=== PATIENT | female | born 1945 | race Hispanic/Latino ===

== ENCOUNTER 2017-04-30 09:25 | Emergency (ER) | payer OTHER ==
[~2017-04-30] VITALS: Ht 149.9 cm; Wt 68.0 kg
[~2017-04-30 09:25] MED LIST: ALENDRONATE SOD70 MG PO; BENTYL10 MG PO; CALCIUM 600 +1 EAC2 PO; COLACE100 MG PO; CYCLOBENZAPRINE10 MG PO; LEVAQUIN500 MG PO; MELOXICAM7.5 MG PO; MILK OF MA400 MG/5 M PO; OMEPRAZOLE20 MG PO; SENOKOT8.6 MG PO; TYLENOL WITH C1 EACH PO; ZOFRAN ODT4 MG SL
[2017-04-30] MEDS ORDERED: ALBUTEROL SULF 0.083% NEB SOLN 3 ML NEB NEB STA (10:40)
[2017-04-30] MEDS ORDERED: IPRATROPIUM BROMIDE 0.02% 2.5 ML NEB NEB STA (10:40)
[2017-04-30] MEDS ORDERED: ACETAMINOPHEN/CODEINE ELIX 120-12 MG/5 ML UDC PO ONE (10:45)
[2017-04-30] MEDS ORDERED: DEXAMETHASONE 10MG/ML PF INJ INJ ONE (10:45)
--- NOTE | 2017-04-30 11:25 | Diagnostic Imaging Report ---
PROCEDURE: Frontal and lateral views of the chest. COMPARISON: 02/27/15 INDICATIONS: COUGH FINDINGS: Lines/tubes: None. Lungs: The lungs are well inflated. Small area of right mid lung opacification. Pleura: There is no pleural effusion or pneumothorax. Heart and mediastinum: The heart and the mediastinum are normal. Bones: No acute bony abnormality. IMPRESSION: Small area of right mid lung opacification, may represent scarring, nodule, or developing pneumonia. Attention on follow up. Dictated by: Aurelio Ludwig M.D. on 04/30/2017 at 11:33 Electronically approved by: Aurelio Ludwig M.D. on 04/30/2017 at 11:33
[2017-04-30] MEDS ORDERED: CEFTRIAXONE SOD 1 GM VIAL IM ONE (11:30)
[2017-04-30] MEDS ORDERED: LIDOCAINE HCL 1% 2 ML AMP ONE (11:40)
== END 2017-04-30 12:34 | disposition home or self-care (01) ==
LOC: ER 09:25
DX: R05 Cough (principal); J20.9 Acute bronchitis, unspecified
CPT/HCPCS: 71020; 87400; 99283; J0696; J2001

== ENCOUNTER → 2017-10-04 | Day surgery (SDC) | payer OTHER ==
[2017-10-01 15:58] LABS: BASOPHILS % 0.2 % (0.0-1.0); EOSINOPHILS # (AUTO) 0.2 (0.0-0.4); EOSINOPHILS % 2.2 % (0.0-6.0); HEMATOCRIT 36.7 % (34.2-44.1); HEMOGLOBIN 12.5 g/dL (12.0-16.0); LYMPHOCYTES # (AUTO) 2.4 (1.0-3.2); MEAN CORPUSCULAR HEMOGLOBIN 30.4 pg (28-32); MEAN CORPUSCULAR HGB CONC 34.1 g/dL (31-35); MEAN CORPUSCULAR VOLUME 89.3 fL (81-99); MONOCYTES # (AUTO) 0.8 (0.2-0.8); MONOCYTES % 7.4 % (4.4-11.3); NEUTROPHILS # (AUTO) 6.9 (2.1-6.9); NEUTROPHILS % 66.8 % (38.7-80.0); PLATELET COUNT 210 x10e3/uL (140-360); RED BLOOD COUNT 4.11 x10e6/uL (3.6-5.1); RED CELL DISTRIBUTION WIDTH 12.8 % (11.7-14.4)
[2017-10-01 16:17] LABS: BLOOD UREA NITROGEN 13 mg/dL (7-26); CARBON DIOXIDE 26 mmol/L (22-29); CHLORIDE 103 mmol/L (98-107); CREATININE, SERUM 0.75 mg/dL (0.57-1.11); SODIUM 138 mmol/L (136-145)
[2017-10-01 16:18] LABS: BUN/CREATININE RATIO 17 (6-25); CALCIUM 9.6 mg/dL (8.4-10.2); EST GLOMERULAR FILTRATION RATE > 60 ML/MIN (60-); GLUCOSE 97 mg/dL (74-118)
--- NOTE | 2017-10-01 17:01 | Diagnostic Imaging Report ---
PROCEDURE: Frontal and lateral views of the chest. COMPARISON: Chest x-ray 04/30/2017 INDICATIONS: PREOP CXR. left hallux valgus FINDINGS: Lines/tubes: None. Lungs: The lungs are well inflated and clear. There is no evidence of pneumonia or pulmonary edema. Pleura: There is no pleural effusion or pneumothorax. Heart and mediastinum: The heart and the mediastinum are normal. Bones: No acute bony abnormality. IMPRESSION: No acute cardiopulmonary disease. Resolved previous right midlung pneumonia. Dictated by: Prateek Peterson M.D. on 10/01/2017 at 17:04 Electronically approved by: Prateek Peterson M.D. on 10/01/2017 at 17:04
[~2017-10-04] MED LIST changes: +ACETAMINOPHEN 1000 MG/100 ML IV ONE; +BETAMETHASONE DISODIUM PHOS 6 MG/ML VIAL ONE; +BUPIVACAINE HCL 0.5% INJ 30 ML VIAL INJ ONE; +CLINDAMYCIN PHOS 900MG/ D5W 50 50 ML IV ONE; +DEXAMETHASONE SOD PHOS INJ 4 MG/ML VIAL ONE; +FENTANYL CITRATE/PF 100MCG/2 ML INJ ONE; +KETOROLAC TROMETHAMINE 30 MG/ML VIAL ONE; +MUPIROCIN 2% OINT 22 GM TUBE ONE; +ONDANSETRON HCL INJ 2 MG/ML VIAL ONE; +PROPOFOL IV EMULSION 10 MG/ML 20 ML VIAL ONE; +SEVOFLURANE INHAL SOLN 250 ML PEN BTL ONE
--- NOTE | 2017-10-04 09:31 | Diagnostic Imaging Report ---
PROCEDURE:FOOT LEFT AP \T\ LAT TECHNIQUE:AP and lateral portable views left foot INDICATION:Postoperative evaluation COMPARISON:None. FINDINGS: See conclusions. CONCLUSION: 1. Expected regional sequela of bunionectomy and second through fourth hammertoe correction. 2. Anatomic alignment without acute abnormality. Dictated by: Adi Goode M.D. on 10/04/2017 at 9:34 Electronically approved by: Adi Goode M.D. on 10/04/2017 at 9:34
--- NOTE | 2017-10-04 09:59 | Operative Report ---
DATE OF PROCEDURE: October 04, 2017 PREOPERATIVE DIAGNOSES 1. Painful hallux valgus deformity, left foot. 2. Painful contracted hammertoe, digit 2nd, left foot. 3. Painful contracted hammertoe, digit 3rd, left foot. 4. Painful contracted hammertoe, digit 4th, left foot. 5. Painful contracted hammertoe, digit 5th, left foot. POSTOPERATIVE DIAGNOSES 1. Painful hallux valgus deformity, left foot. 2. Painful contracted hammertoe, digit 2nd, left foot. 3. Painful contracted hammertoe, digit 3rd, left foot. 4. Painful contracted hammertoe, digit 4th, left foot. 5. Painful contracted hammertoe, digit 5th, left foot. OPERATIVE PROCEDURES 1. Kailash bunionectomy with screw fixation, left foot. 2. Arthroplasty, 2nd, with K-wire fixation 2nd through 4th digits, left foot. 3. Arthroplasty, 3rd, with K-wire fixation 2nd through 4th digits, left foot. 4. Arthroplasty, 4th, with K-wire fixation 2nd through 4th digits, left foot. 5. Arthroplasty, 5th, with K-wire fixation 2nd through 4th digits, left foot. 6. Intraoperative use of fluoroscopy. 7. Trigger point shot of cortisone. 8. Application of posterior splint. ANESTHESIA: General. HEMOSTASIS: Pneumatic thigh tourniquet at 350 mmHg. PROCEDURE IN DETAIL: Patient was taken into the operating room and placed on the operating room table in the supine position. Following induction of general anesthesia by the anesthesiologist, Webril wraps were placed on the patient's left thigh followed by application of left thigh tourniquet. The left lower extremity was then prepped and draped in the usual aseptic manner. The following procedure was then performed: Procedure #1: Kailash bunionectomy with screw fixation, left foot. Attention was directed to the dorsomedial aspect of the 1st MPJ where a 6 cm linear incision was performed. The incision was deepened via sharp and blunt dissection being careful to retract vital structures and ligate superficial vessels as necessary. Once the level of the capsule was reached, a longitudinal capsulotomy was then performed exposing the dorsomedial exostosis of the 1st metatarsal head. Via the use of an oscillating saw, a dorsomedial exostosis was excised from the operation site in toto. A V-osteotomy was then performed from medial to lateral. Capital fragment was then transitioned laterally. Upon adequate surgical and anatomical reduction utilizing proper AO technique, a 2 x 14 mm cortical screw was then used to achieve stability at the osteotomy site in conjunction with a buried 0.045 K-wire. All redundant bone medially was then excised utilizing an oscillating saw and rotating bur. PROCEDURES 2-5: Arthroplasty, 2nd through 5th with K-wire fixation, 2nd through 4th. Attention was then directed to the dorsal aspect of the above-mentioned toes where a 3 cm linear incision was performed. The incision was deepened down to the joint capsule. Transverse capsulotomy was then performed exposing the head of the proximal phalanxes. Via the use of an oscillating saw, the head of the proximal phalanxes were excised from the operation site in toto. All rough and bony edges were rasped smooth. The 2nd through 4th toes were still noted to be contracted, so a 0.045 K-wire was introduced up the metatarsophalangeal joint to achieve proper anatomic reduction. PROCEDURE #6: Intraoperative use of fluoroscopy was then used to make sure proper alignment and fixation was achieved. Closure was then obtained utilizing 3-0 Vicryl, 4-0 Vicryl and 4-0 nylon for capsule, subcutaneous tissue and skin respectively after properly and copiously flushing the area with saline. PROCEDURE #7: Trigger point shot of cortisone was then given to the 1st and 4th interspace of the left foot. Then approximately 18-20 mL of 0.5% plain Marcaine were then used to achieve local anesthesia above the surgical area. Sterile dressing was applied. Upon release of the thigh tourniquet, blood hyperemia was noted immediate to all digits of the patient's left foot. PROCEDURE #8: Application of posterior splint. A properly placed posterior splint was then applied keeping the foot at 90 degrees with respect to the leg to try to prevent any type of postop complications. Patient was then transferred from the OR to the recovery room with vital signs stable and neurovascular status intact. No intraoperative complications were encountered. Blood loss from the surgery was minimal. Patient is to remain nonweightbearing with crutches. Keep her foot elevated, and is to apply an ice pack to the ankle joint area. Job#: [id number] ID
== END | disposition home or self-care (01) ==
LOC: OR 05:42
PROVIDERS: ATTEND Podiatrist Foot Surgery
DX: M20.12 Hallux valgus (acquired), left foot (principal); M20.42 Other hammer toe(s) (acquired), left foot; Z88.0 Allergy status to penicillin; K21.9 Gastro-esophageal reflux disease without esophagitis
CPT/HCPCS: 36415; 71046; 80048; 85025; 93005; J0720; J1100; J1885; J2405

== ENCOUNTER → 2018-03-13 | Outpatient (CLI) | payer OTHER ==
[~2018-03-13] MED LIST changes: -ACETAMINOPHEN 1000 MG/100 ML IV ONE; -BETAMETHASONE DISODIUM PHOS 6 MG/ML VIAL ONE; -BUPIVACAINE HCL 0.5% INJ 30 ML VIAL INJ ONE; -CLINDAMYCIN PHOS 900MG/ D5W 50 50 ML IV ONE; -DEXAMETHASONE SOD PHOS INJ 4 MG/ML VIAL ONE; -FENTANYL CITRATE/PF 100MCG/2 ML INJ ONE; -KETOROLAC TROMETHAMINE 30 MG/ML VIAL ONE; -MUPIROCIN 2% OINT 22 GM TUBE ONE; -ONDANSETRON HCL INJ 2 MG/ML VIAL ONE; -PROPOFOL IV EMULSION 10 MG/ML 20 ML VIAL ONE; +REGADENOSON 0.4 MG/5 ML SYR IV ONE; -SEVOFLURANE INHAL SOLN 250 ML PEN BTL ONE
--- NOTE | 2018-03-13 12:34 | Cardiology Report ---
DATE OF STUDY: March 13, 2018 LEXISCAN STRESS TEST INDICATIONS: Chest pain. DESCRIPTION OF PROCEDURE: After informed consent, the patient was brought to the stress lab. She was given 11 mCi of technetium 99 Myoview, and myocardial perfusion SPECT images were obtained in horizontal long and short axis and vertical long axis views. Subsequently the patient was given 0.4 mg Lexiscan over 10 seconds. The patient was given 33 mCi of technetium 99 Myoview, and myocardial perfusion SPECT images were obtained in horizontal long axis and short axis and vertical long axis. Gated images were also obtained. Patient tolerated the procedure without any complications. REPORT: Baseline EKG shows sinus rhythm at 66 beats per minute. Normal axis, normal intervals. No acute ST-T changes. PARAMETERS 1. Resting heart rate is 67 beats per minute. 2. Maximum heart rate is 88 beats per minute. 3. Resting blood pressure 136/64 mmHg. 4. Maximum blood pressure is 136/64 mmHg. REASON FOR TERMINATION: Endpoint attained. INTERPRETATION 1. Negative for chest pain. 2. Negative for arrhythmias. 3. Blood pressure response consistent with Lexiscan. 4. No significant ST-T changes seen during Lexiscan infusion compared to baseline. 5. Analysis of SPECT images reveals uniform radioisotope uptake in all segments of the myocardium without any significant perfusion defects. CONCLUSIONS 1. No evidence of significant ischemia or infarction on this study. 2. No wall motion abnormalities. 3. Overall ejection fraction is 86%. Job#: [id number]
== END ==
LOC: NM 07:19
DX: R07.2 Precordial pain (principal)
CPT/HCPCS: 78452; 93017; A9502; J2785

== ENCOUNTER 2018-06-06 03:34 | Emergency (ER) | payer MEDICARE ==
[~2018-06-06] VITALS: Ht 149.9 cm; Wt 68.0 kg
[~2018-06-06 03:34] MED LIST changes: -REGADENOSON 0.4 MG/5 ML SYR IV ONE
--- OUTSIDE RECORDS SUMMARY | 2018-06-06 03:38 | XMS REPORT ---
Author Author [facility] Address Unknown Phone Unavailable Care Team Providers Care Manager Rfid Name Role Phone KYE SALEH Unavailable Unavailable ANGELO MALDONADO Unavailable Unavailable Alfredito LOPEZ Unavailable Unavailable PASQUALE MERCER Unavailable Unavailable Problems This patient has no known problems. Allergies, Adverse Reactions, Alerts This patient has no known allergies or adverse reactions. Medications This patient has no known medications. Results Test Description Test Time Test Comments Text Results Atomic Results Result Comments Stress Test - Treadmill ONLY 2018-03-13 12:07:00 [place] [address] Patient Name : RICHIE GUZMÁN MR #: [id number] : 1945 Age/Sex: 72/F Adm Physician : KYE SALEH MD Admit Date : Location : IN Room/Bed : REPORT: Cardiology Report DATE OF STUDY: March 13, 2018 LEXISCAN STRESS TEST INDICATIONS: Chest pain. DESCRIPTION OF PROCEDURE: After informed consent, the patient was brought to the stress lab. She was given 11 mCi of technetium 99 Myoview, and myocardial perfusion SPECT images were obtained in horizontal long and short axis and vertical long axis views. Subsequently the patient was given 0.4 mg Lexiscan over 10 seconds. The patient was given 33 mCi of technetium 99 Myoview, and myocardial perfusion SPECT images were obtained in horizontal long axis and short axis and vertical long axis. Gated images were also obtained. Patient tolerated the procedure without any complications. REPORT: Baseline EKG shows sinus rhythm at 66 beats per minute. Normal axis, normal intervals. No acute ST-T changes. PARAMETERS 1. Resting heart rate is 67 beats per minute. 2. Maximum heart rate is 88 beats per minute. 3. Resting blood pressure 136/64 mmHg. 4. Maximum blood pressure is 136/64 mmHg. REASON FOR TERMINATION: Endpoint attained. INTERPRETATION 1. Negative for chest pain. 2. Negative for arrhythmias. 3. Blood pressure response consistent with Lexiscan. 4. No significant ST-T changes seen during Lexiscan infusion compared to baseline. 5. Analysis of SPECT images reveals uniform radioisotope uptake in all segments of the myocardium without any significant perfusion defects. CONCLUSIONS 1. No evidence of significant ischemia or infarction on this study. 2. No wall motion abnormalities. 3. Overall ejection fraction is 86%. Job#: [id number] Signature Date Dictated By: KYE SALEH MD Transcribed By: PINO on 03/13/18 <Electronically signed by KYE SALEH MD><<Signature on File>>03/18/18 1315 COPY TO: FOOT LEFT AP LAT 2017-10-04 09:34:00 [place] [address] Patient Name: RICHIE GUZMÁN MR #: [id number] : 1945 Age/Sex: 72/F Req #: [id number] Adm Physician: Ordered by: ANGELO MALDONADO DPM Report #: [id number] Location: OR Room/Bed: Procedure: [id number] DX/FOOT LEFT AP LAT Exam Date: 10/04/17 Exam Time: 0900 REPORT STATUS: Signed PROCEDURE: FOOT LEFT AP T LAT TECHNIQUE: AP and lateral portable views left foot INDICATION: Postoperative evaluation COMPARISON: None. FINDINGS: See conclusions. CONCLUSION: 1. Expected regional sequela of bunionectomy and second through fourth hammertoe correction. 2. Anatomic alignment without acute abnormality. Dictated by: Joel Goode M.D. on 10/04/2017 at 9:34 Electronically approved by: Joel Goode M.D. on 10/04/2017 at 9:34 Dictated By: JOEL GOODE MD 3 Transcribed By: JOSE on 10/04/17933 COPY TO: ANGELO MALDONADO DPM CHEST 2 VIEWS 2017-10-01 17:04:00 [place] [address] Patient Name: RICHIE GUZMÁN MR #: [id number] : 1945 Age/Sex: 72/F Req #: [id number] Adm Physician: Ordered by: ANGELO MALDONADO DPM Report #: [id number] Location: OR Room/Bed: Procedure: [id number] DX/CHEST 2 VIEWS Exam Date: 10/01/17 Exam Time: 1625 REPORT STATUS: Signed PROCEDURE: Frontal and lateral views of the chest. COMPARISON: Chest x-ray 04/30/2017 INDICATIONS: PREOP CXR. left hallux valgus FINDINGS: Lines/tubes: None. Lungs: The lungs are well inflated and clear. There is no evidence of pneumonia or pulmonary edema. Pleura: There is no pleural effusion or pneumothorax. Heart and mediastinum: The heart and the mediastinum are normal. Bones: No acute bony abnormality. IMPRESSION: No acute cardiopulmonary disease. Resolved previous right midlung pneumonia. Dictated by: Javan Garza M.D. on 10/01/2017 at 17:04 Electronically approved by: Javan Garza M.D. on 10/01/2017 at 17:04 Dictated By: JAVAN GARZA MD 03 Transcribed By: JOSE on 10/01/171703 COPY TO: ANGELO MALDONADO DPM CHEST 2 VIEWS [place] [address] Patient Name: RICHIE GUZMÁN MR #: [id number] : 1945 Age/Sex: 71/F Req #: [id number] Adm Physician: Ordered by: ALBERTO GROVER SALESPERSON TERRAZZO TILES Report #: [id number] Location: ER Room/Bed: Procedure: [id number] DX/CHEST 2 VIEWS Exam Date: 04/30/17 Exam Time: 1030 REPORT STATUS: Signed PROCEDURE: Frontal and lateral views of the chest. COMPARISON: 02/27/15 INDICATIONS: COUGH FINDINGS: Lines/tubes: None. Lungs: The lungs are well inflated. Small area of right mid lung opacification. Pleura: There is no pleural effusion or pneumothorax. Heart and mediastinum: The heart and the mediastinum are normal. Bones: No acute bony abnormality. IMPRESSION: Small area of right mid lung opacification, may represent scarring, nodule, or developing pneumonia. Attention on follow up. Dictated by: Aurelio Sy M.D. on 04/30/2017 at 11:33 Electronically approved by: Aurelio Sy M.D. on 04/30/2017 at 11:33 Dictated By: AURELIO SY MD 113 Transcribed By: JOSE on 04/30/17 1133 COPY TO: ALBERTO GROVER NP CT ABDOMEN/PELVIS W [place] [address] Patient Name: RICHIE GUZMÁN MR #: [id number] : 1945 Age/Sex: 71/F Req #: [id number] Adm Physician: Ordered by: AMIRAH CLEMENTS MD Report #: [id number] Location: ER Room/Bed: Procedure: [id number] CT/CT ABDOMEN/PELVIS W Exam Date: 03/21/17 Exam Time: 2245 REPORT STATUS: Signed EXAM: CT Abdomen and Pelvis WITH contrast INDICATION: Abdominal pain COMPARISON: None. TECHNIQUE: Abdomen and pelvis were scanned utilizing a multidetector helical scanner from the lung base to the pubic symphysis after administration of IV contrast. Coronal and sagittal reformations were obtained. Routine protocol was performed. Scan was performed when during portal venous phase. IV CONTRAST: 100 mL of Isovue-370 ORAL CONTRAST: Gastrografin RADIATION DOSE: Total DLP: 369.39 mGy*cm Estimated effective dose: (DLP x 0.015 x size factor) mSv COMPLICATIONS: None FINDINGS: LINES and TUBES: None. LOWER THORAX: Unremarkable HEPATOBILIARY: Large 5.4 cm cyst in the right liver, segment 4A. There are multiple scattered too small to characterize hypodensities in the liver, likely benign. No biliary ductal dilation. GALLBLADDER: There are cholecystectomy clips. SPLEEN: No splenomegaly. PANCREAS: No focal masses or ductal dilatation. ADRENALS: No adrenal nodules KIDNEYS/URETERS: Kidneys enhance symmetrically. No hydronephrosis. No cystic or solid mass lesions. No stones. GI TRACT: No abnormal distention, wall thickening, or evidence of bowel obstruction. There are diverticula within the colon without evidence of diverticulitis. Appendix is normal. PELVIC ORGANS/BLADDER: There are postop changes of hysterectomy and bilateral oophorectomies. LYMPH NODES: No lymphadenopathy. VESSELS: Unremarkable. PERITONEUM / RETROPERITONEUM: No free air or fluid. BONES: Unremarkable. SOFT TISSUES: Unremarkable. IMPRESSION: 1. No evidence of acute intra-abdominal or pelvic abnormality to explain patient's pain Signed by: Dr. Bib Duke M.D. on 03/21/2017 11:08 PM Dictated By: BIB BUENO MD 07 Transcribed By: IRAIS on 03/21/172307 COPY TO: AMIRAH CLEMENTS MD
--- OUTSIDE RECORDS SUMMARY | 2018-06-06 03:38 | XMS REPORT | CCD ---
Author Author Auto Generated Organization [facility] [place] Address Unknown Phone Unavailable Care Team Providers Care Parachute Marker Name Role Phone Rose Gutiérrez CP Allergies, Adverse Reactions, Alerts Substance Reaction Status penicillins Active
--- OUTSIDE RECORDS SUMMARY | 2018-06-06 03:38 | XMS REPORT ---
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 Status Never Smoker Mar 12, 2014 Alcohol Use No. Mar 12, 2014 Marital Status: . Mar 12, 2014 Do you drink alcohol? No. Mar 12, 2014 Summary Purpose [employer] Submission
--- OUTSIDE RECORDS SUMMARY | 2018-06-06 03:38 | XMS REPORT | Summary of Care ---
Author Organization Unknown Address Unknown Phone Unavailable Encounter [facility] Encntr_suad([facility]) [id number] Date(s): 07/03/14 - 07/03/14 [facility] Out[facility] Imaging - [place] [address] [place] [address] [place] [address]- [facility] [phone] Discharge Disposition: Home Physician Attending: Rose Gutiérrez MD Vital Signs No data available for this section Problem List No data available for this section Allergies, Adverse Reactions, Alerts Substance Reaction Severity Status penicillins Active Medications No data available for this section Results No data available for this section Immunizations No data available for this section Procedures No data available for this section Social History No data available for this section Assessment and Plan No data available for this section
--- OUTSIDE RECORDS SUMMARY | 2018-06-06 03:38 | XMS REPORT | Summary of Care ---
Author Author [facility] [place] Organization [facility] [place] Address Unknown Phone Unavailable Encounter [facility] Encntr_alias([facility]) [id number] Date(s): 11/21/16 - 11/21/16 [facility] Out[facility] - [place] [address] [phone] Discharge Disposition: Home or Self Care Attending Physician: Russ Menjivar MD Vital Signs No data available for [...]
--- OUTSIDE RECORDS SUMMARY | 2018-06-06 03:38 | XMS REPORT | Summary of Care ---
Author Author [facility] [place] [facility] Organization [facility] [place] [facility] Address Unknown Phone Unavailable Encounter [facility] Encntr_alipushpa([facility]) [id number] Date(s): 11/26/15 - 11/26/15 [facility] Out[facility] - [place] [employer] [address] [place] [phone] Discharge Disposition: Home or Self Care Attending Physician: Isabel Verduzco MD Vital Signs No data available for [...]
--- OUTSIDE RECORDS SUMMARY | 2018-06-06 03:38 | XMS REPORT | CCD ---
Author Author Auto Generated Organization [facility] Outpatient Imaging - [place] Address Unknown Phone Unavailable Care Team Providers Care Manager Aviation Name Role Phone Rose Gutiérrez CP Allergies, Adverse Reactions, Alerts Substance Reaction Status penicillins Active
--- OUTSIDE RECORDS SUMMARY | 2018-06-06 03:38 | XMS REPORT | CCD ---
Author Author Auto Generated Organization [facility] Outpatient Imaging - [place] Address Unknown Phone Unavailable Care Team Providers Care Spud Grader Name Role Phone Russ Menjivar CP Allergies, Adverse Reactions, Alerts Substance Reaction Status penicillins Active
--- OUTSIDE RECORDS SUMMARY | 2018-06-06 03:38 | XMS REPORT | CCD ---
Author Author Auto Generated Organization [facility] Out[facility] [place] Address Unknown Phone Unavailable Care Team Providers Care Kitchen Food Assembler Name Role Phone Rose Gutiérrez CP Allergies, Adverse Reactions, Alerts Substance Reaction Status penicillins Active
--- OUTSIDE RECORDS SUMMARY | 2018-06-06 03:38 | XMS REPORT | Continuity of Care Document ---
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 Mohamed O Jeroudi Angina pectoris Active Problem 07/29/2014 Mohamed O Jeroudi Cardiomyopathy due to hypertension Active Problem 07/29/2014 Mohamed O Jeroudi Murmur, cardiac Active Problem 07/29/2014 Mohamed O Jeroudi Palpitations Active Problem 07/29/2014 Mohamed O Jeroudi Obesity Active Problem 07/29/2014 Mohamed O Jeroudi Medications Medication Details Route Status Patient Instructions Ordering Provider Order Date Source Allergies, Adverse Reactions, Alerts Substance Category Reaction Severity Reaction type Status Date Reported Comments Source penicillins Assertion Drug allergy Active CARMEN Tompkins Immunizations Immunization Date Given Site Status Last Updated Comments Source Results Order Name Results Value Reference Range Date Interpretation Comments Source Breast Complete Uni US Breast Complete Uni US COMPLETE ULTRASOUND OF RIGHT BREAST AND AXILLA: 02/18/2018 CLINICAL: /R92.8 Other Abnormal And Inconclusive Findings On Diagnostic Imaging Of Breast. COMPARISON:Comparison is made to exams dated: 02/18/2018 mammogram, 01/29/2018 mammogram, 07/03/2014 mammogram, 02/06/2012 mammogram, 01/12/2011 mammogram, and 09/14/2009 mammogram - [facility]. TECHNIQUE: Color flow and real-time ultrasound of the right breast four quadrants, retroareolar, and axilla regions were performed on the areas of interest. FINDINGS: There is a 1.1 cm oval mass with a circumscribed margin in the right breast at 1 o'clock middle depth 6 cm from the nipple. This oval mass is hypoechoic. This correlates with mammography findings. Color flow imaging demonstrates that there is no vascularity present. No lymphadenopathy in the axillary or internal mammary farhana basins is identified. IMPRESSION: SUSPICIOUS OF MALIGNANCY RECOMMENDATION: The 1.1 cm oval mass in the right breast is suspicious of malignancy. An ultrasound guided biopsy is recommended. This was discussed with the patient, but she refused biopsy. A 3 month follow up evaluation was offered and also refused. A follow-up mammogram and an ultrasound in 6 months was offered and agreed upon by the patient to evaluate this mass for stability. She was instructed to return immediately if she noticed any change in her physical exam or if she changed her mind about the biopsy. Professional services are provided by the [facility] [place] of Diagnostic Imaging. Edson Ngo M.D. cm/:02/18/2018 15:06:48 Slitter Cut Off Operator(s): Suzy Leroy [facility] letter sent: BI-RADS 4/5 Ultrasound BI-RADS: 4 Suspicious abnormality 02/18/2018 - - Read by: Rishi Sue MD Dictated Date/time: 02/18/18 15:06 Electronically Signed by: Rishi Sue MD 02/18/18 15:06 FINAL REPORT BRITT Tompkins Breast Mammo Diag UNI incl CAD CA Breast Mammo Diag UNI incl CAD MA UNILATERAL RIGHT DIGITAL DIAGNOSTIC MAMMOGRAM WITH CAD: 02/18/2018 CLINICAL: R92.8 Other Abnormal And Inconclusive Findings On Diagnostic Imaging Of Breast/R92.8 Other Abnormal And Inconclusive Findings On Diagnostic Imaging Of Breast. Current study was evaluated with a Computer Aided Detection (CAD) system. COMPARISON:Comparison is made to exams dated: 01/29/2018 mammogram, 07/03/2014 mammogram, 02/06/2012 mammogram, 01/12/2011 mammogram, and 09/14/2009 mammogram - [facility]. TECHNIQUE: Mammographic views were obtained using digital acquisition. Current study was also evaluated with a Computer Aided Detection (CAD) system. FINDINGS: The tissue of right breast is heterogeneously dense, which could obscure detection of small masses. There is a 1.1 cm oval equal density mass with an obscured margin in the right breast at 1 o'clock middle depth 4.5 cm from the nipple. No other significant masses or calcifications are seen in the breast. IMPRESSION: INCOMPLETE: NEEDS ADDITIONAL IMAGING EVALUATION RECOMMENDATION:The 1.1 cm oval equal density mass in the right breast is indeterminate. An ultrasound is recommended. This exam was interpreted at [id number] for JACK Rene. Professional services are provided by the [facility] Division of Diagnostic Imaging. Edson Ngo M.D. cm/penrad:02/18/2018 14:31:20 Slitter Cut Off Operator(s): RT Shay(R)(M), [facility] Mammogram BI-RADS: 0 Indeterminate 02/18/2018 - - Read by: Rishi Sue MD Dictated Date/time: 02/18/18 14:31 Electronically Signed by: Rishi Sue MD 02/18/18 14:31 FINAL REPORT BRITT Tompkins Breast Mammo Scrn KIAN incl CAD MA Breast Mammo Scrn KIAN incl CAD MA BILATERAL DIGITAL SCREENING MAMMOGRAM WITH CAD: 01/29/2018 CLINICAL: Z12.31 Encounter For Screening Mammogram For Malignant Neoplasm Of Breast/Z12.31 Encounter For Screening Mammogram For Malignant Neoplasm Of Breast. Current study was evaluated with a Computer Aided Detection (CAD) system. COMPARISON:Comparison is made to exams dated: 07/03/2014 mammogram, 02/06/2012 mammogram, 01/12/2011 mammogram, and 09/14/2009 mammogram - [facility]. TECHNIQUE: Mammographic views were obtained using digital acquisition. Current study was also evaluated with a Computer Aided Detection (CAD) system. FINDINGS: The tissue of both breasts is heterogeneously dense, which could obscure detection of small masses. There is a 1.1 cm oval equal density mass with an obscured margin in the right breast at 1 o'clock middle depth 4.5 cm from the nipple. No other significant masses, calcifications, or other findings are seen in either breast. IMPRESSION: INCOMPLETE: NEEDS ADDITIONAL IMAGING EVALUATION RECOMMENDATION:The 1.1 cm oval equal density mass in the right breast is indeterminate. Diagnostic mammography views as well as an ultrasound are recommended. This exam was interpreted at [id number] for JACK Mejia. Professional services are provided by the [facility] Division of Diagnostic Imaging. Edson Ngo M.D. cm/penrad:01/29/2018 10:53:13 Slitter Cut Off Operator(s): RT Shay(R)(M), [facility] letter sent: BI-RADS 0 Mammogram BI-RADS: 0 Indeterminate 01/29/2018 - - Read by: Rishi Sue MD Dictated Date/time: 01/29/18 10:53 Electronically Signed by: Rishi Sue MD 01/29/18 10:53 FINAL REPORT CARMEN Tompkins Shoulder wo contrast MRI Shoulder wo contrast MRI : MR right shoulder without contrast HISTORY: - M75.111 Incomplete rotator cuff tear or rupture of right shoulder, not specified as traumatic; right shoulder pain and limited range of motion; right rotator cuff tendinosis and tendon tear; right subdural, subdeltoid bursitis; right acromial clavicular degenerative arthrosis COMPARISON: Radiographs of the right scapula dated 02/16/2012 and prior MR of the right shoulder dated 07/20/2011 is reviewed. TECHNIQUE: Multiplanar, multisequence magnetic resonance imaging of the right shoulder is performed with a local coil. Transverse, oblique coronal, and oblique sagittal images are obtained. FINDINGS: Biceps: The long head of biceps remains attached at the superior bicipital labral complex without dislocation or subluxation. Labrum: The glenoid labrum is intact on this non-arthrographic examination. Rotator cuff tendons: . There is a small, full-thickness tear at the anterior footprint of the supraspinatus tendon near the anterior leading edge measuring 6 mm in anteroposterior dimension. There is underlying moderate to severe supraspinatus and moderate infraspinatus tendinosis with diffuse increased heterogeneous tendon signal and tendon hypertrophy, but there is no high-grade partial-thickness or full-thickness tear of the infraspinatus tendon. The teres minor and subscapularis tendons are intact. Muscles: There is normal signal intensity and muscle bulk of the rotator cuff musculature. Acromio-osseous outlet: There is a type II acromion with a small subacromial spur. There is no os acromiale. The coracoacromial and coracoclavicular ligaments are intact. There is mild to moderate degenerative arthrosis of the acromioclavicular joint. Bone: Osseous degenerative changes are noted at the acromioclavicular joint. There are no acute fractures. There are no suspicious bone marrow replacing lesions. Cartilage: Again, there is mild to moderate degenerative arthrosis at the acromioclavicular joint with associated chondrosis. There is no focal glenohumeral chondral defect. Soft tissue: There is a small amount of fluid in the subacromial-subdeltoid bursa. A physiologic amount of fluid is present in the glenohumeral joint. The inferior glenohumeral capsular ligaments are intact. IMPRESSION: 1. Small full-thickness tear at the anterior footprint of the right supraspinatous tendon near the anterior leading edge measuring 6 mm in anteroposterior dimension. There is underlying moderate to severe right supraspinatus and moderate infraspinatus tendinosis, but no high-grade partial-thickness or full- thickness tear of the infraspinatus tendon and no right supraspinatus or infraspinatus muscular atrophy. 2. Mild to moderate right acromioclavicular degenerative arthrosis. 3. Small amount of fluid within the right subacromial subdeltoid bursa likely represent mild right subacromial subdeltoid bursitis, although this may also represent fluid decompressing from the glenohumeral joint space through the full-thickness supraspinatus tendon defect. 4. Intact right glenoid labrum on this non-arthrographic examination without focal glenohumeral chondral defect. 11/21/2016 - - Read by: Jeremy Burks MD Dictated Date/time: 11/21/16 13:51 Electronically Signed by: Jeremy Burks MD 11/21/16 13:58 FINAL REPORT CARMEN Tompkins Knee 3 Views Bilateral DX Knee 3 Views Bilateral DX EXAM: Knee 3 Views Bilateral DX HISTORY: right knee pain COMPARISON: 07/15/2012 right knee There is mild medial tibiofemoral joint space narrowing. Small marginal osteophytes are present at the tibiofemoral joint bilaterally, along with small pleural effusions. No fracture or dislocation. IMPRESSION: Degenerative change as above. 11/26/2015 - - Read by: Mary Jane Wolfe MD Dictated Date/time: 11/26/15 09:19 Electronically Signed by: Mary Jane Wolfe MD 11/26/15 09:22 FINAL REPORT CARMEN Tompkins Digital Mammo Screening Kian MA Digital Mammo Screening Kian MA - DIGITAL MAMMO SCREENING KIAN MA BILATERAL DIGITAL SCREENING MAMMOGRAM WITH CAD: 07/03/2014 CLINICAL: V76.12 Other Screening Mammogram. Current study was evaluated with a Computer Aided Detection (CAD) system. Comparison is made to exams dated: 09/14/2009 mammogram, 01/12/2011 mammogram and 02/06/2012 mammogram - [facility]. The tissue of both breasts is heterogeneously dense, which could obscure detection of small masses. There is a benign density and an intramammary node in the right breast. There also are post operative findings in the left breast. No significant masses, calcifications, or other findings are seen in either breast. There has been no significant interval change. IMPRESSION: BENIGN There is no mammographic evidence of malignancy. A 1 year screening mammogram is recommended. Rick Nixon M.D. srp/penrad:07/03/2014 09:50:59 Slitter Cut Off Operator: Frieda Vásquez, [facility] This exam was dictated and interpreted by [id number] for BRITT Tompkins. letter sent: Normal exam Mammogram BI-RADS: 2 Benign 07/03/2014 - - Read by: Rick Nixon MD Dictated Date/time: 07/03/14 09:50 Electronically Signed by: Rick Nixon MD 07/03/14 09:50 FINAL REPORT BRITT Tompkins Vital Signs Vital Sign Value Date Comments Source Encounters Location Location Details Encounter Type Encounter Number Reason For Visit Attending Provider ADM Date DC Date Status Source [facility] [place] [facility] [id number] Rose Gutiérrez 07/03/2014 07/04/2014 [place] [place] Cory Raza MD [place] Unknown [id number] 07/28/2014 07/28/2014 Cory Raza MD PA Unknown [id number] 07/30/2014 07/30/2014 Cory Raza [facility] [place] [facility] [id number] Isabel Verduzco 11/26/2015 11/27/2015 CARMEN Tompkins [facility] [place] [facility] [id number] Russ Menjivar 11/21/2016 11/22/2016 CARMEN Tompkins Procedures Procedure Code Date Perfomer Comments Source
[2018-06-06] MEDS ORDERED: PHENAZOPYRIDINE HCL 100 MG TAB PO SCH (03:45)
[2018-06-06] MEDS ORDERED: CEFTRIAXONE SOD 1 GM/NS 50 ML 50 ML IV ONE (03:45)
[2018-06-06] MEDS ORDERED: KETOROLAC TROMETHAMINE 60 MG/2 ML VIAL IM ONE (03:45)
[2018-06-06] MEDS ORDERED: NITROFURANTOIN MACROCRYSTALS 100 MG CAP PO ONE (03:45)
[2018-06-06 04:06] LABS: BILIRUBIN,URINE NEGATIVE (NEGATIVE); CLARITY,URINE CLOUDY (CLEAR); COLOR,URINE RED (YELLOW); KETONES,URINE NEGATIVE (NEGATIVE); LEUKOCYTE ESTERASE ,URINE 1+ (NEGATIVE); NITRITE,URINE NEGATIVE (NEGATIVE); PROTEIN,URINE DIPSTICK 3+ (NEGATIVE); URINE UROBILINOGEN 0.2 mg/dL (0.2 - 1)
[2018-06-06 04:07] LABS: BACTERIA,URINE FEW /HPF; EPITHELIAL CELLS,URINE FEW /LPF; MUCUS,URINE MODERATE (RARE); RBC,URINE >50 /HPF (0-5)
--- NOTE | 2018-06-06 05:11 | Diagnostic Imaging Report ---
EXAM: CT Abdomen and Pelvis WITHOUT contrast INDICATION: Hematuria. COMPARISON: CT 03/21/2017 TECHNIQUE: Abdomen and pelvis were scanned utilizing a multidetector helical scanner from the lung base to the pubic symphysis without administration of IV contrast. Absence of intravenous contrast decreases sensitivity for detection of focal lesions and vascular pathology. Coronal and sagittal reformations were obtained. Routine protocol was performed. IV CONTRAST: None ORAL CONTRAST: Water COMPLICATIONS: None RADIATION DOSE: Total DLP: 400.2 mGy*cm Estimated effective dose: (DLP x 0.015 x size factor) mSv Dose modulation, iterative reconstruction, and/or weight based adjustment of the mA/kV was utilized to reduce the radiation dose to as low as reasonably achievable. FINDINGS: LINES and TUBES: None. LOWER THORAX: Partially visualized lingular 1.2 cm nodule, previously 1.1 cm on 02/25/2015. HEPATOBILIARY: Large 5.4 cm cyst, unchanged. Additional smaller cysts and tiny hypodensities which are too small to characterize but likely cysts. No biliary ductal dilation. GALLBLADDER: Absent SPLEEN: No splenomegaly. PANCREAS: No focal masses or ductal dilatation. ADRENALS: No adrenal nodules KIDNEYS/URETERS: No hydronephrosis. Small partially exophytic cysts in the right kidney, largest measures 1 cm. No stones. GI TRACT: No abnormal distention, wall thickening, or evidence of bowel obstruction. There are diverticula within the colon without evidence of diverticulitis. PELVIC ORGANS/BLADDER: There are postop changes of hysterectomy and bilateral oophorectomies. LYMPH NODES: No lymphadenopathy. VESSELS: There is mild atherosclerotic disease in the aorta and major arterial branches. PERITONEUM / RETROPERITONEUM: No free air or fluid. BONES: There are degenerative changes in the lumbar spine. SOFT TISSUES: Unremarkable. IMPRESSION: 1. No urolithiasis. If hematuria persists, consider CT urography for further evaluation. 2. No acute abnormalities. Signed by: DR. Ar Trujillo MD on 06/06/2018 5:08 AM
[2018-06-06 06:01] VITALS: BP 119/48
== END 2018-06-06 06:12 | disposition home or self-care (01) ==
LOC: ER 03:34
DX: R30.0 Dysuria (principal); N30.91 Cystitis, unspecified with hematuria
CPT/HCPCS: 74176; 81001; 96372; 99284; J0696; J1885

== ENCOUNTER 2018-07-15 16:01 | Emergency (ER) | payer MEDICARE ==
[~2018-07-15] VITALS: Ht 149.9 cm; Wt 68.0 kg
--- OUTSIDE RECORDS SUMMARY | 2018-07-15 16:05 | XMS REPORT | Continuity of Care Document ---
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 Ramez Raza Medications Medication Details Route Status Patient Instructions Ordering Provider Order Date Source Acetaminophen With Codeine (Tylenol With Codeine #3 Tablet) 1 Each Tablet, 300 Mg Oral Active 01/22/2016 [facility] Cyclobenzaprine Hcl 10 Mg Tablet, 5 Mg Oral Three Times A Day Active 01/22/2016 [facility] Dicyclomine Hcl (Bentyl) 10 Mg Capsule, 20 Mg Oral Every 6 Hours as needed for Abdominal Pain Active 01/22/2016 [facility] Levofloxacin (Levaquin) 500 Mg Tablet, 500 Mg Oral Daily Active 01/22/2016 [facility] Meloxicam 7.5 Mg Tablet, 15 Mg Oral Daily Active 01/22/2016 [facility] Ondansetron (Zofran Odt) 4 Mg Tab.rapdis, 4 Mg Sublingual Every 6 Hours as needed for Nausea Active 01/22/2016 [facility] Acetaminophen With Codeine (Tylenol With Codeine #3 Tablet) 1 Each Tablet, 300 Mg Oral Every 4 Hours as needed for Pain Active [facility] 03/02/2015 [facility] Docusate Sodium (Colace) 100 Mg Cap, 100 Mg Oral Twice A Day Active [facility] 03/02/2015 [facility] Magnesium Hydroxide (Milk Of Magnesia) 400 Mg/5 Ml Oral.susp, 30 Ml Oral Daily Active [facility] 03/02/2015 [facility] Sennosides (Senokot) 8.6 Mg Tablet, 8.6 Mg Oral Every 12 Hours Active [facility] 03/02/2015 [facility] Alendronate Sodium 70 Mg Tablet Weekly Active [facility] Calcium Carbonate/Vitamin D3 (Calcium 600 + D3 Softgel) 1 Each Capsule Daily Active [facility] Omeprazole 20 Mg Capsule.dr Nguyen Active [facility] Allergies, Adverse Reactions, Alerts Substance Category Reaction Severity Reaction type Status Date Reported Comments Source Penicillin RASH/HIVES Mild Allergy to Substance Active 04/30/2017 [facility] Gquzlom-Xvf-Owc Reductase Inhibitor Severe Allergy to Substance Active 06/06/2018 [facility] Metronidazole Severe Allergy to Substance Active 06/06/2018 [facility] Levofloxacin Severe Allergy to Substance Active 06/06/2018 [facility] penicillins Assertion Drug allergy Active [facility] [place] Immunizations Immunization Date Given Site Status Last Updated Comments Source Results Order Name Results Value Reference Range Date Interpretation Comments Source Urine color determination RED YELLOW 06/06/2018 [facility] Urine clarity CLOUDY CLEAR 06/06/2018 [facility] Specific gravity of Urine by Test strip 1.020 1.010 - 1.025 06/06/2018 [facility] Urine pH measurement by automated test strip 7 5 - 7 06/06/2018 [facility] Urine leukocyte esterase detection by dipstick 1+ NEGATIVE 06/06/2018 [facility] Urine nitrite detection NEGATIVE NEGATIVE 06/06/2018 [facility] Urine protein measurement by test strip (mass/volume) 3+ NEGATIVE 06/06/2018 [facility] Urine glucose detection NEGATIVE NEGATIVE 06/06/2018 [facility] Urine ketones detection by automated test strip NEGATIVE NEGATIVE 06/06/2018 [facility] Urine urobilinogen measurement by test strip (mass/volume) 0.2 0.2 - 1 06/06/2018 [facility] Urine total bilirubin measurement (mass/volume) NEGATIVE NEGATIVE 06/06/2018 [facility] Urine erythrocytes detection 4+ NEGATIVE 06/06/2018 [facility] Automated urine sediment leukocyte count by microscopy (number/high power field) 6-10 0 - 5 06/06/2018 [facility] Erythrocytes detection in urine sediment by light microscopy >50 0 - 5 06/06/2018 [facility] Bacteria detection in urine sediment by light microscopy FEW NONE 06/06/2018 [facility] Epithelial cells detection in urine sediment by light microscopy FEW NONE 06/06/2018 [facility] Mucus detection in urine sediment by light microscopy MODERATE RARE 06/06/2018 [facility] Breast Complete Uni US Breast Complete Uni US COMPLETE ULTRASOUND OF RIGHT BREAST AND AXILLA: 02/18/2018 CLINICAL: /R92.8 Other Abnormal And Inconclusive Findings On Diagnostic Imaging Of Breast. COMPARISON:Comparison is made to exams dated: 02/18/2018 mammogram, 01/29/2018 mammogram, 07/03/2014 mammogram, 02/06/2012 mammogram, 01/12/2011 mammogram, and 09/14/2009 mammogram - [facility]. TECHNIQUE: Color flow and real-time ultrasound [...] biopsy. Professional services are provided by the [facility] Division of Diagnostic Imaging. Edson Ngo M.D. cm/:02/18/2018 15:06:48 Lease Analyst(s): Suzy Leroy [facility] letter sent: BI-RADS 4/5 Ultrasound BI-RADS: 4 Suspicious abnormality 02/18/2018 - - Read by: Rishi Sue MD Dictated Date/time: 02/18/18 15:06 Electronically Signed by: Rishi Sue MD 02/18/18 15:06 FINAL REPORT BRITT MORALES [place] Breast Mammo Diag UNI incl CAD MA Breast Mammo Diag UNI incl CAD MA [...] mammogram, 01/12/2011 mammogram, and 09/14/2009 mammogram - [facility]. TECHNIQUE: Mammographic views were obtained using [...] is recommended. This exam was interpreted at [id number] for BRITT Tompkins, SL 15. Professional services are provided by the [facility] Division of Diagnostic Imaging. Edson Ngo M.D., cm/penrad:02/18/2018 14:31:20 Lease Analyst(s): RT Shay(R)(M), [facility] Mammogram BI-RADS: 0 Indeterminate 02/18/2018 - - Read by: Rishi Sue MD Dictated Date/time: 02/18/18 14:31 Electronically Signed by: Rishi Sue MD 02/18/18 14:31 FINAL REPORT CARMEN Tompkins Breast Mammo Scrn KIAN incl CAD [...] mammogram, 01/12/2011 mammogram, and 09/14/2009 mammogram - [facility]. TECHNIQUE: Mammographic views were obtained using [...] are recommended. This exam was interpreted at [id number] for JACK Mejia 15. Professional services are provided by the [facility] of Diagnostic Imaging. Edson Ngo M.D., cm/penrad:01/29/2018 10:53:13 Lease Analyst(s): RT Shay(R)(M), [facility] letter sent: BI-RADS 0 Mammogram BI-RADS: 0 Indeterminate 01/29/2018 - - Read by: Rishi Sue MD Dictated Date/time: 01/29/18 10:53 Electronically Signed [facility]: [facility] 01/29/18 10:53 FINAL REPORT CARMEN Tompkins Blood leukocytes automated count (number/volume) 10.34 4.8 - 10.8 10/01/2017 [facility] Blood erythrocytes automated count (number/volume) 4.11 3.6 - 5.1 10/01/2017 [facility] Blood hemoglobin measurement (moles/volume) 12.5 12.0 - 16.0 10/01/2017 [facility] Automated blood hematocrit (volume fraction) 36.7 34.2 - 44.1 10/01/2017 [facility] Automated erythrocyte mean corpuscular volume 89.3 81 - 99 10/01/2017 [facility] Automated erythrocyte mean corpuscular hemoglobin (mass per erythrocyte) 30.4 28 - 32 10/01/2017 [facility] Automated erythrocyte mean corpuscular hemoglobin concentration measurement (mass/volume) 34.1 31 - 35 10/01/2017 [facility] RDW BldCo-Rto 12.8 11.7 - 14.4 10/01/2017 [facility] Automated blood platelet count (count/volume) 210 140 - 360 10/01/2017 [facility] Automated blood segmented neutrophil count as percentage of total leukocytes 66.8 38.7 - 80.0 10/01/2017 [facility] Automated blood lymphocyte count as percentage ot total leukocytes 23.0 18.0 - 39.1 10/01/2017 [facility] Automated blood monocyte count as percentage of total leukocytes 7.4 4.4 - 11.3 10/01/2017 [facility] Automated blood eosinophil count as percentage of total leukocytes 2.2 0.0 - 6.0 10/01/2017 [facility] Automated blood basophil count as percentage of total leukocytes 0.2 0.0 - 1.0 10/01/2017 [facility] IM GRANULOCYTES % 0.4 0.0 - 1.0 10/01/2017 [facility] Automated blood neutrophil count 6.9 2.1 - 6.9 10/01/2017 [facility] Blood lymphocytes count (number/volume) 2.4 1.0 - 3.2 10/01/2017 [facility] Blood monocytes automated count (number/volume) 0.8 0.2 - 0.8 10/01/2017 [facility] Automated blood eosinophil count 0.2 0.0 - 0.4 10/01/2017 [facility] Automated blood basophil count (count/volume) 0.0 0.0 - 0.1 10/01/2017 [facility] Absolute Immature Granulocyte (auto 0.04 0 - 0.1 10/01/2017 [facility] Serum or plasma sodium measurement (moles/volume) 138 136 - 145 10/01/2017 [facility] Serum or plasma potassium measurement (moles/volume) 4.0 3.5 - 5.1 10/01/2017 [facility] Serum or plasma chloride measurement (moles/volume) 103 98 - 107 10/01/2017 [facility] Serum or plasma carbon dioxide, total measurement (moles/volume) 26 22 - 29 10/01/2017 [facility] Serum or plasma anion gap 13.0 8 - 16 10/01/2017 [facility] Serum or plasma urea nitrogen measurement (mass/volume) 13 7 - 26 10/01/2017 [facility] Serum or plasma creatinine measurement (mass/volume) 0.75 0.57 - 1.11 10/01/2017 [facility] Serum or plasma urea nitrogen/creatinine mass ratio 17 6 - 25 10/01/2017 [facility] Estimated glomerular filtration rate (GFR) determination > 60 60 10/01/2017 [facility] Glucose measurement 97 74 - 118 10/01/2017 [facility] Serum or plasma calcium measurement (mass/volume) 9.6 8.4 - 10.2 10/01/2017 [facility] Shoulder wo contrast MRI Shoulder wo contrast [...] mammogram, 01/12/2011 mammogram and 02/06/2012 mammogram - [facility]. The tissue of both breasts is [...] is recommended. Rick Nixon M.D. srp/penrad:07/03/2014 09:50:59 Lease Analyst: Frieda Vásquez [facility] This exam was dictated and interpreted by [id number] for BRITT Tompkins. letter sent: Normal exam Mammogram BI-RADS: 2 Benign 07/03/2014 - - Read by: Rick Nixon MD Dictated Date/time: 07/03/14 09:50 Electronically Signed by: Rick Nixon MD 07/03/14 09:50 FINAL REPORT BRITT Tompkins Vital Signs Vital Sign Value Date Comments Source Encounters Location Location Details Encounter Type Encounter Number Reason For Visit Attending Provider ADM Date DC Date Status Source [facility] [place] [facility] [id number] Rose Gutiérrez 07/03/2014 07/04/2014 CARMEN Raza MD [place] Unknown [id number] 07/28/2014 07/28/2014 Cory Raza MD PA Unknown [id number] 07/30/2014 07/30/2014 Cory Raza [facility] Out[facility] - [place] [facility] [id number] Isabel Verduzco 11/26/2015 11/27/2015 BRITT Tompkins [facility] Out[facility] - [place] [facility] [id number] Russ Menjivar 11/21/2016 11/22/2016 BRITT Tompkins [facility] [id number] ANGELO MALDONADO DPM 10/04/2017 [facility] Registered Clinic [id number] KYE SALEH MD 03/13/2018 [facility] Departed Emergency Room [id number] MELVINA PEPE MD 06/06/2018 06/06/2018 [facility] Procedures Procedure Code Date Perfomer Comments Source CT of abdomen and pelvis without contrast [id number] 06/06/2018 MY [facility] REPAIR OF HAMMERTOE [id number] 10/04/2017 [facility] CORRECTION HALLUX VALGUS [id number] 10/04/2017 [facility] X-ray of chest, two views [id number] 10/01/2017 [facility]
[2018-07-15 18:28] LABS: STREPTOCOCCUS GRP A ANTIGEN NEGATIVE (NEGATIVE)
[2018-07-15 18:38] LABS: INFLUENZAE A&B ANTIGEN (RAPID) NEGATIVE (NEGATIVE)
--- NOTE | 2018-07-15 19:24 | Diagnostic Imaging Report ---
Examination: Single AP view of the chest. COMPARISON: Chest 2 views 10/01/2017 INDICATION: Cough IMPRESSION: 1. Lines and Tubes: None 2. Lungs are grossly clear. No consolidation or effusion. 3. Cardiomediastinal silhouette is normal. Pulmonary vasculature is normal. 4. No acute bony abnormalities. Signed by: Dr. Arslan Zuniga M.D. on 07/15/2018 7:20 PM
[2018-07-16 06:02] VITALS: BP 140/71
== END 2018-07-16 01:40 | disposition home or self-care (01) ==
LOC: ER 16:01
DX: R05 Cough (principal); H66.002 Acute suppurative otitis media without spontaneous rupture of ear drum, left ear; J06.9 Acute upper respiratory infection, unspecified; J02.9 Acute pharyngitis, unspecified; J01.00 Acute maxillary sinusitis, unspecified
CPT/HCPCS: 71045; 83518; 87070; 87400; 99283

== ENCOUNTER 2019-07-08 10:25 | Inpatient (IN) | payer OTHER ==
[~2019-07-08] VITALS: Ht 149.9 cm; Wt 68.0 kg
[2019-07-08] MEDS ORDERED: ONDANSETRON HCL INJ 2MG/ML 2ML 2 MG/ML VIAL ONE (10:51)
[2019-07-08] MEDS ORDERED: SODIUM CHLORIDE 0.9% 1000ML 1,000 ML IV STA (10:53)
[2019-07-08] MEDS ORDERED: ACETAMINOPHEN 325 MG TAB PO ONE (11:00)
[2019-07-08 11:17] LABS: BASOPHILS % 0.1 % (0.0-1.0); EOSINOPHILS % 0.2 % (0.0-6.0); HEMATOCRIT 42.2 % (34.2-44.1); HEMOGLOBIN 14.3 g/dL (12.0-16.0); LYMPHOCYTES # (AUTO) 0.3 (1.0-3.2); LYMPHOCYTES % 2.1 % (18.0-39.1); MEAN CORPUSCULAR HGB CONC 33.9 g/dL (31-35); MEAN CORPUSCULAR VOLUME 88.7 fL (81-99); MONOCYTES # (AUTO) 0.4 (0.2-0.8); MONOCYTES % 2.7 % (4.4-11.3); NEUTROPHILS # (AUTO) 13.3 (2.1-6.9); NEUTROPHILS % 94.5 % (38.7-80.0); PLATELET COUNT 261 x10e3/uL (140-360); RED BLOOD COUNT 4.76 x10e6/uL (3.6-5.1); RED CELL DISTRIBUTION WIDTH 12.5 % (11.7-14.4)
[2019-07-08] MEDS ORDERED: CEFTRIAXONE SOD 1 GM/NS 50 ML 50 ML IV ONE (11:30)
[2019-07-08 11:31] LABS: CLARITY,URINE CLEAR (CLEAR); COLOR,URINE YELLOW (YELLOW); KETONES,URINE 1+ (NEGATIVE); LEUKOCYTE ESTERASE ,URINE NEGATIVE (NEGATIVE); NITRITE,URINE NEGATIVE (NEGATIVE); PROTEIN,URINE DIPSTICK 2+ (NEGATIVE)
[2019-07-08 11:32] LABS: BILIRUBIN,URINE NEGATIVE (NEGATIVE); URINE UROBILINOGEN 0.2 mg/dL (0.2 - 1)
[2019-07-08 11:34] LABS: BACTERIA,URINE RARE /HPF; EPITHELIAL CELLS,URINE RARE /LPF; RBC,URINE 0-5 /HPF (0-5); WBC,URINE (MAN) 0-5 /HPF (0-5)
[2019-07-08 11:54] LABS: ALANINE AMINOTRANSFERASE 15 IU/L (0-55); ALBUMIN 4.2 g/dL (3.5-5.0); ALBUMIN/GLOBULIN RATIO 1.1 (0.8-2.0); ALKALINE PHOSPHATASE 66 IU/L (40-150); BLOOD UREA NITROGEN 11 mg/dL (7-26); BUN/CREATININE RATIO 14 (6-25); CALCIUM 9.6 mg/dL (8.4-10.2); CARBON DIOXIDE 25 mmol/L (22-29); CHLORIDE 106 mmol/L (98-107); CREATINE KINASE 57 IU/L (29-168); EST GLOMERULAR FILTRATION RATE > 60 ML/MIN (60-); GLUCOSE 149 mg/dL (74-118); SODIUM 138 mmol/L (136-145)
--- NOTE | 2019-07-08 12:54 | Diagnostic Imaging Report ---
Examination: Single AP view of the chest. COMPARISON: Portable chest 07/15/2028 INDICATION: Cough, sore throat IMPRESSION: 1. Lines and Tubes: None 2. Lungs are grossly clear. No consolidation or effusion. 3. Cardiomediastinal silhouette is normal. Pulmonary vasculature is normal. 4. No acute bony abnormalities. Signed by: Dr. Arslan Zuniga M.D. on 07/08/2019 12:51 PM
[2019-07-08 13:32] LABS: BAND NEUTROPHILS % (MANUAL) 1 %; LYMPHOCYTES % (MANUAL) 1 % (19-48); MONOCYTES % (MANUAL) 4 % (3.4-9.0); NEUTROPHILS % (MANUAL) 94 % (40-74); PLATELET ESTIMATE ADEQUATE
[2019-07-08 13:33] LABS: PLATELET MORPHOLOGY COMMENT NORMAL; RBC MORPHOLOGY COMMENT NORMAL
[2019-07-08] MEDS ORDERED: CEFTRIAXONE SOD 1 GM VIAL ONE (13:47)
[2019-07-08] MEDS ORDERED: ALBUTEROL SULF 0.083% NEB SOLN 3 ML NEB NEB STA (14:50)
[2019-07-08] MEDS ORDERED: IPRATROPIUM BROMIDE 0.02% 2.5 ML NEB NEB ONE (15:00)
[2019-07-08] MEDS ORDERED: SODIUM CHLORIDE 0.9% 1000ML 1,000 ML ONE (17:31)
--- NOTE | 2019-07-08 17:53 | Diagnostic Imaging Report ---
EXAM: CT Chest, Abdomen and Pelvis WITH contrast INDICATION: Cough, vomiting COMPARISON: Chest x-ray, 07/08/2019; CT abdomen/pelvis, 06/06/2018, 03/21/2017 TECHNIQUE: Chest, abdomen and pelvis were scanned utilizing a multidetector helical scanner from the lung apex to the pubic symphysis before and after administration of IV contrast. Coronal and sagittal reformations were obtained. Routine protocol was performed. Scan was performed when during portal venous phase. Dose modulation, iterative reconstruction, and/or weight based adjustment of the mA/kV was utilized to reduce the radiation dose to as low as reasonably achievable. IV CONTRAST: 100 mL of Isovue-370 ORAL CONTRAST: Water RADIATION DOSE: Total DLP: 910.86 mGy*cm Estimated effective dose: (DLP x 0.015 x size factor) mSv COMPLICATIONS: None FINDINGS: LINES and TUBES: None. LUNGS AND AIRWAYS: There is mild atelectasis in the posterior lung bases and in the right middle lobe. Nonspecific 4 mm nodule in the right upper lobe (3/21) and 4 mm nodule in the right middle lobe (3/31). There is a nodule measuring 1.2 x 0.9 x 1.0 cm in the lingula (3/29), unchanged from previous exam of 03/21/2017. No pulmonary consolidation. Trachea and main bronchi are clear. PLEURA: No pleural effusion or pneumothorax. HEART AND MEDIASTINUM: The thyroid gland appears normal. No mediastinal, hilar or axillary lymphadenopathy. The heart is normal in size.. There is no pericardial effusion. The thoracic aorta is unremarkable. Ascending aorta measures 2.4 cm, main pulmonary artery 2.4 cm, normal. HEPATOBILIARY: Stable 5.2 cm and 1.7 cm hypodensities in the right lobe of the liver compatible with cysts. Smaller hypodensities in the right and left lobes are too small to fully characterize, likely additional small cysts. No new focal hepatic lesions. Low density adjacent to the anterior aspect of the falciform ligament likely represents localized fatty infiltration. No biliary ductal dilation. GALLBLADDER: Surgical absence of the gallbladder with cholecystectomy clips. SPLEEN: No splenomegaly. PANCREAS: No focal masses or ductal dilatation. ADRENALS: No adrenal nodules KIDNEYS/URETERS: Kidneys enhance symmetrically. No hydronephrosis. Stable small cortical cysts both kidneys, largest at the interpolar right kidney measuring 1.0 cm. No stones. GI TRACT: No abnormal distention, wall thickening, or evidence of bowel obstruction. The appendix is not visualized. There is no right lower quadrant inflammation to suggest appendicitis. PELVIC ORGANS/BLADDER: Urinary bladder appears unremarkable. No abnormal mass or fluid collection pelvis. LYMPH NODES: No dominant lymph node mass is seen in the abdomen, retroperitoneum or pelvis. VESSELS: No aneurysm or dissection of the abdominal aorta. IVC and portal system appear unremarkable. Celiac, SMA and KAREN are patent. There are calcified plaques with likely stenoses in the proximal portions of both renal arteries. PERITONEUM / RETROPERITONEUM: No pneumoperitoneum or ascites. BONES: No acute or suspicious bony lesions. SOFT TISSUES: Superficial surrounding soft tissue unremarkable. IMPRESSION: 1. No CT evidence for acute chest, abdomen or pelvic pathology. 2. There are nonspecific subcentimeter nodules in the right upper and lower lobes. According to Fleischner Society criteria, recommend follow-up noncontrast chest CT in one year for high risk patient. 3. 1.2 cm mass in the lingula is stable from 2017 and can be reassessed on one-year follow-up chest CT. Signed by: Dr. Sudhakar Farias M.D. on 07/08/2019 5:50 PM
[2019-07-08] MEDS ORDERED: ALBUTEROL/IPRATROPIUM 3 ML NEB NEB ONE (18:00)
[2019-07-08] MEDS ORDERED: SODIUM CHLORIDE 0.9% 1000ML 1,000 ML IV SCH ×3 (18:00→19:30)
[2019-07-08] MEDS ORDERED: PROCTOZONE-HC30 G1 (18:40)
[2019-07-08] MEDS ORDERED: ALENDRONATE SOD10 MG (18:40)
[2019-07-08] MEDS ORDERED: LEFLUNOMIDE20 MG (18:40)
--- NOTE | 2019-07-08 18:51 | NUR ---
spoke with pt's daughter, katie toro [phone], and spouse of pt will be two visitors for pt during stay. aware of pt isolation
[2019-07-08] MEDS ORDERED: SODIUM CHLORIDE 0.9% 50ML 50 ML ONE (19:30)
[2019-07-08] MEDS ORDERED: IOPAMIDOL 370 MG/ML 200 ML INFUS..BTL INJ ONE (19:30)
[2019-07-08] MEDS ORDERED: HYDROCODONE/APAP 5MG-325MG TAB PO PRN (20:00)
[2019-07-08] MEDS ORDERED: MELATONIN 5 MG TABLET PO PRN (20:00)
[2019-07-08] MEDS ORDERED: BENZONATATE 100 MG CAP PO PRN (20:30)
[2019-07-08] MEDS: ACETAMINOPHEN 325 MG TAB PO PRN (21:12)
--- NOTE | 2019-07-08 21:16 | NUR ---
PATIENTS TEMPERATURE HAS RISEN, ACETAMINIOPHEN GIVEN
--- NOTE | 2019-07-08 21:42 | History and Physical ---
CHIEF COMPLAINT: Fever, cough, congestion, and myalgias. HISTORY OF PRESENT ILLNESS: This is a 74-year-old female, very poor historian, reports having underlying fever, cough, congestion, and diarrhea that began early this morning around 2 a.m. The patient states she woke up, had significant amount of diarrhea, but denies any abdominal pain. Reports having some nausea and vomiting, nonbloody vomit. Reports the diarrhea is loose and watery in nature. Also reports having fever at home. No sick contacts. No recent travel. The patient came into the ED for further evaluation and management. The patient is seen and evaluated at bedside on the medical floor in the ER. She is currently doing well with no other issues at this time. On admission, her temperature was 101.2, T-max. Current temperature is 99.9. Her blood pressure was relatively low when she came in, but now is much improved. REVIEW OF SYSTEMS: Pertinent positive: Cough, congestion, fever, myalgias, and diarrhea. The rest of 14-point review of systems have been reviewed with the patient and are negative. ALLERGIES: TO PENICILLIN, STATINS, LEVAQUIN, AND METRONIDAZOLE. HOME MEDICATIONS: Alendronate, omeprazole, hydrocortisone cream, and rufinamide. PAST MEDICAL HISTORY: She has a history of acid reflux. PAST SURGICAL HISTORY: x2, hysterectomy, lumpectomy of the left breast, which was benign, wrist surgery, and left rotator cuff surgery. FAMILY HISTORY: Hypertension and diabetes. SOCIAL HISTORY: No drugs. No alcohol. Does not smoke. Has two children. PHYSICAL EXAMINATION: VITAL SIGNS: Temperature 99.9, T-max was 101.2, pulse 98, respiratory rate is 21, blood pressure 98/42, but when I evaluated was 101/63, and pulse ox 98% on room air. GENERAL: Not in acute distress. Alert and oriented x3. Cooperative on examination. HEENT: Head; normocephalic, atraumatic. Eyes; pupils are equal, round, and reactive to light bilaterally. Extraocular movements intact bilaterally. Throat; no evidence of erythema or exudates in the posterior pharynx. Has poor dentition. NECK: Supple. Good range of motion. PULMONARY: Clear to auscultation bilaterally. No wheezing, no rales, no rhonchi, no crackles appreciated. CARDIOVASCULAR: Positive S1 and S2. No murmurs, rubs, or gallops appreciated. ABDOMEN: Soft, nondistended, and nontender to palpation. Bowel sounds present. MUSCULOSKELETAL: Strength is 5/5 throughout. No evidence of any muscle deficits on examination. No weakness appreciated. NEUROLOGIC: Cranial nerves 2 through 12 grossly intact. No evidence of any neurological deficits on exam. SKIN: Intact. Warm to touch. Good cap refill. PSYCHIATRIC: Normal affect and mood. EXTREMITIES: No edema. Good range of motion throughout. LABORATORY DATA: Show white count 14, hemoglobin 14, hematocrit is 42, and platelets of 261. Chemistry; sodium 138, potassium 4, chloride 106, bicarb 25, anion gap of 11, BUN is 11, creatinine is 0.8, and glucose is 149. Lactic acid is 1.6. Calcium 9.6. Total bilirubin was 0.6, AST 18, ALT 15, and alkaline phosphatase 66. CK 57 and troponins were negative. Albumin 4.2. Lipase 19. Urinalysis negative. Serology flu negative. Group A strep negative. Coronavirus PCR pending. MICROBIOLOGY: Blood cultures pending. Group A strep pending. Throat culture is pending. IMAGING STUDIES: Chest x-ray negative. Chest CT shows no evidence of acute chest, abdomen, or pelvic pathology. There is nonspecific subcentimeter nodules in the right upper and lower lobes. A 1.2 cm mass in the lingula, stable from 2017, can be reassessed on one year followup chest CT. CT abdomen and pelvis, no acute findings. IMPRESSION: 1. Sepsis with underlying fever/leukocytosis. 2. Hypotension. 3. History of acid reflux. 4. Cough/congestion. 5. Diarrhea. 6. Lung mass. PLAN: At this time, the patient's imaging studies were found to be negative for any source of infection. UA is negative. She does have a fever and white count is elevated. Blood cultures have been collected. Throat cultures have been collected and she is on IV antibiotics. ID has been consulted. Due to the nature of this current condition and having Coronavirus in the community, we did go ahead and order a Coronavirus PCR. The patient will be in isolation. ID has been consulted. There is a lung mass. I will go ahead and get Pulmonary to evaluate the lung mass further. She will be on IV antibiotics very closely. I will put on PT/OT evaluation. Lovenox for DVT prophylaxis. She is on antitussive medication, IV antibiotics as well as other p.r.n. medications. We will continue to follow very closely. MD JASMYN Rivero/LUCIANO /[id number]
[2019-07-08] MEDS ORDERED: CEFEPIME 1GM/NS 0.9% 50 ML 50 ML IV SCH (22:00)
[2019-07-08] MEDS: MIDODRINE HCL 5 MG TABLET PO SCH (22:10)
[2019-07-08] MEDS: IBUPROFEN 400 MG TAB PO PRN (22:16)
[2019-07-08 23:42] VITALS: BP 86/50
[2019-07-09] VITALS (10 sets, daily range): BP systolic 86–143; BP diastolic 50–73
--- NOTE | 2019-07-09 01:28 | NUR ---
Low BP noted. Patient is asymptomatic. Called Dr. Tidwell no answer.
--- NOTE | 2019-07-09 07:00 | NUR ---
received bedside report. pt is alert, oob, no s/s of distress. call light within reach and instructed pt to call RN for help
[2019-07-09] MEDS: MIDODRINE HCL 5 MG TABLET PO SCH ×3 (08:47→16:00)
[2019-07-09] MEDS ORDERED: CEFEPIME 1GM/NS 0.9% 50 ML 50 ML IV SCH (09:00)
[2019-07-09] MEDS: ACETAMINOPHEN 325 MG TAB PO PRN (11:15)
--- NOTE | 2019-07-09 12:30 | NUR ---
Dr. Azul making rounds. stated that he believes the patient may have had a false negative flu result based on symptoms.
--- NOTE | 2019-07-09 13:35 | NUR ---
PULMONARY CLINICAL ACUTE INFLUENZA (+) SICK CONTACT, 07/08/19 TESTED LUNG NODULES, NONSPECIFIC. Rec: Influenza care Repeat Chest CT in 06/2020 to ensure stability of nodules Thanks you
[2019-07-09] MEDS: IBUPROFEN 400 MG TAB PO PRN (14:09)
[2019-07-09] MEDS: OSELTAMIVIR PHOSPHATE 75 MG CAP PO SCH ×2 (14:09→21:49)
--- NOTE | 2019-07-09 15:10 | Consultation ---
DATE OF CONSULTATION: 07/09/2019 Pulmonary Medicine Consult REASON FOR REFERRAL: Shortness of breath. HISTORY OF PRESENT ILLNESS: Ms. Duran is a pleasant 74-year-old female with acute onset of cough and congestion. She had associated fevers. There is also some diarrhea. Onset only for one day as far as they know. The patient came to the emergency room, as she was feeling worse, 101.2 temperature. The patient's was positive for influenza antigen. The patient herself tested negative for influenza antigen. She was admitted. Of note, chest x-ray and chest CT did not show any pneumonia. She has some nodules that were 4 mm in size and also 1.2 cm nodule that was seemed to be old compared to previous. PAST MEDICAL HISTORY: GERD, mild allergies. PAST SURGICAL HISTORY: See surgical list. MEDICATIONS: Medication list reviewed per the chart record. ALLERGIES: PENICILLIN, STATIN, LEVAQUIN, AND METRONIDAZOLE. FAMILY HISTORY: Noncontributory to this condition. SOCIAL HISTORY: No smoking. No drinking. No drugs. Hospitalized. REVIEW OF SYSTEMS: GENERAL: No weight changes. OPHTHALMOLOGIC: No double vision. ENT: No mouth ulcers. ENDOCRINE: No thyroid disease. PULMONARY: No asthma. CARDIAC: No heart attack. GI: No constipation. : No blood in urine. NEUROLOGIC: No seizures. DERMATOLOGIC: No rash. PHYSICAL EXAMINATION: VITAL SIGNS: Afebrile, vital signs noted and reviewed per the chart record. GENERAL: In no acute distress, alert and calm. HEENT: Normocephalic and atraumatic. NECK: Supple. Throat midline. LUNGS: Bilateral air entry. The patient has clear lungs. CARDIOVASCULAR: S1 and S2. No murmurs, rubs, or gallops. ABDOMEN: Soft and nontender. EXTREMITIES: No clubbing. No cyanosis. There is no edema. INTEGUMENT: No rash. No purpura. LABORATORY DATA: Creatinine 0.8. 14 white count, 42 hematocrit, 261 platelets. IMPRESSION AND PLAN: 1. Clinical acute influenza, antigen test negative. 2. Mild upper respiratory infection. 3. Mild gastroenteritis. 4. History of mild gastroesophageal reflux disease. 5. History of mild allergies. At this time, the patient recommended for Tamiflu to be initiated. The patient without any high pulmonary indication for antibiotics, as there is no pneumonia that was evident. We can consider repeating x-ray if she has more symptoms. The patient needs CT chest in 12 months' time in June 2020. The patient for now can continue best supportive care for her condition. Thank you very much, Dr. Tidwell, for this consult. Please call for questions. MD TROY Gusman/LUCIANO /[id number]
--- NOTE | 2019-07-09 16:45 | NUR ---
gave report to Roxana and patient was transferred to obs via wheelchair with the techs. proper ppe was applied to pt prior to transfer. pt left the unit in stable condition.
[2019-07-09] MEDS ORDERED: ENOXAPARIN SOD INJ 40 MG/0.4 ML SYR SC SCH (17:00)
[2019-07-09] MEDS: CEFTRIAXONE SOD 1 GM/NS 50 ML 50 ML IV SCH (18:27)
--- NOTE | 2019-07-09 18:40 | Consultation ---
DATE OF CONSULTATION: 07/09/2019 HISTORY OF PRESENT ILLNESS: This patient who is a very pleasant 74-year-old female, comes in with cough, fever, chills, nausea, not feeling well, some abdominal discomfort. She had one episode of diarrhea. The patient apparently her was diagnosed recently with influenza and he is at the house, but he is feeling better. She has came with fever and chills. PAST MEDICAL HISTORY: Otherwise as above. PAST SURGICAL HISTORY: x2, hysterectomy, lumpectomy, benign wrist surgery. SOCIAL HISTORY: There is no smoking, drug abuse, or alcohol abuse. FAMILY HISTORY: Hypertension. MEDICATIONS: She is currently on alendronate. ALLERGIES: PENICILLIN, STATIN, LEVAQUIN. PHYSICAL EXAMINATION: GENERAL: She is currently alert, oriented, does not seem to be in acute distress. She seems to be getting better since she came here. VITAL SIGNS: Her T-max has been 102.6 since admission. Otherwise, vital signs stable. HEENT: She is not icteric. NECK: Supple. CHEST: Clear bilateral. HEART: S1, S2. No S3, S4, or murmur. ABDOMEN: Soft. Bowel sounds present. No tenderness. EXTREMITIES: No edema. SKIN: No rash. LABORATORY DATA: White count 14.05, hemoglobin 14.3. She had 94% neutrophils. Sodium 138, potassium 4.0, and creatinine 0.8. Her influenza A and B were negative. Strep screen was negative. CT at present pelvis was done, showed no CT evidence of acute chest, abdomen, pelvis, there are nodes in the right upper lobe. Recommend to followup in six months. There is a mass in the lingula which is stable. Vital signs stable, currently afebrile. As mentioned above, she had fever of 102. The patient is currently on Tamiflu, ibuprofen, Tylenol, cefepime. IMPRESSION: Fever and chills. Her had influenza, there is a good chance she also have influenza. I agree with Tamiflu. I agree with blood cultures. We will put her on Rocephin 1 g daily. Chest x-ray is negative. We will observe the patient clinically on IV fluid. If she continued to improve, can be discharged home with Tamiflu treatment and follow up as outpatient. Because of the fear of COVID-19, I recommended to stay in hospice for 2 weeks. Then, follow up in three weeks as an outpatient. We will reassess in the morning. We will follow with you. MD SKY Mueller/LUCIANO /[id number]
--- NOTE | 2019-07-09 19:05 | NUR ---
RECEIVED REPORT FROM PREVIOUS NURSE. CALL LIGHT WITHIN REACH. PATIENT IN BED WITH 2L NC. PATIENT IN NO PAIN OR DISTRESS.
--- NOTE | 2019-07-09 21:41 | Progress Note ---
DATE: 07/09/2019 Medicine Progress Note SUBJECTIVE: The patient is doing well. She did have a T-max of 102.6 early this morning. Current temperature is 99.9. She is otherwise doing well. She actually looks much better. She reports feeling much better as well. OBJECTIVE: VITAL SIGNS: Temperature is 99.9, T-max 102.6; pulse 78, respiratory rate is 20, blood pressure 122/60, pulse ox 96% on room air. GENERAL: Not in acute distress. Alert and oriented x3. Cooperative on examination. HEENT: Head; normocephalic, atraumatic. Eyes; pupils are equal, round, and reactive to light bilaterally. Extraocular movements intact bilaterally. Throat; no evidence of erythema or exudates in the posterior pharynx. Has poor dentition. NECK: Supple. Good range of motion. PULMONARY: Clear to auscultation bilaterally. No wheezing, no rales, no rhonchi, and no crackles appreciated. CARDIOVASCULAR: Positive S1, S2. No murmurs, rubs, or gallops appreciated. ABDOMEN: Soft, nondistended, nontender to palpation. Bowel sounds present. MUSCULOSKELETAL: Strength is 5/5 throughout. No evidence of any muscle deficits on examination. No weakness appreciated. NEUROLOGIC: Cranial nerves II through XII are grossly intact. No evidence of any neurological deficits on exam. SKIN: Intact. Warm to touch. Good cap refill. PSYCHIATRIC: Normal affect and mood. EXTREMITIES: No edema. Good range of motion throughout. LABORATORY DATA: CBC reviewed, stable. Chemistry reviewed. Urinalysis reviewed. Coronavirus is pending. Flu was negative. Group A strep was negative. MICROBIOLOGY: Blood cultures, no growth to date. Group A strep was no growth. Throat cultures, no growth. IMAGING STUDIES: None. IMPRESSION: 1. Sepsis with underlying fever and leukocytosis. 2. Hypotension - resolved. 3. History of acid reflux. 4. Cough, congestion. 5. Diarrhea. 6. Lung mass. PLAN: At this time, imaging studies were found to be negative for any source of infection. UA is negative. White count and fever still present. Continue with aggressive IV antibiotic therapy. ID is following as well as Pulmonary. Throat cultures were negative. Blood cultures were no growth to date. Coronavirus is still pending. Continue with isolation. PT/OT evaluation. Lovenox for DVT prophylaxis. We will continue same plan of care and monitor closely with the consultants. MD JASMYN Rivero/LUCIANO /[id number]
[2019-07-10] VITALS (7 sets, daily range): BP systolic 106–136; BP diastolic 53–64
[2019-07-10] MEDS: GUAIFENESIN/CODEINE 10 ML CUP PO PRN ×2 (01:46→22:40)
[2019-07-10] MEDS: ACETAMINOPHEN 325 MG TAB PO PRN ×2 (04:36→23:06)
[2019-07-10 06:18] LABS: BASOPHILS % 0.1 % (0.0-1.0); EOSINOPHILS % 0.3 % (0.0-6.0); HEMATOCRIT 34.4 % (34.2-44.1); HEMOGLOBIN 11.2 g/dL (12.0-16.0); LYMPHOCYTES # (AUTO) 0.7 (1.0-3.2); LYMPHOCYTES % 8.9 % (18.0-39.1); MEAN CORPUSCULAR HEMOGLOBIN 29.7 pg (28-32); MEAN CORPUSCULAR HGB CONC 32.6 g/dL (31-35); MEAN CORPUSCULAR VOLUME 91.2 fL (81-99); MONOCYTES # (AUTO) 0.4 (0.2-0.8); MONOCYTES % 5.6 % (4.4-11.3); NEUTROPHILS # (AUTO) 6.3 (2.1-6.9); NEUTROPHILS % 84.7 % (38.7-80.0); PLATELET COUNT 169 x10e3/uL (140-360); RED BLOOD COUNT 3.77 x10e6/uL (3.6-5.1); RED CELL DISTRIBUTION WIDTH 12.8 % (11.7-14.4)
[2019-07-10 06:35] LABS: BLOOD UREA NITROGEN 6 mg/dL (7-26); BUN/CREATININE RATIO 9 (6-25); CARBON DIOXIDE 23 mmol/L (22-29); CHLORIDE 109 mmol/L (98-107); CREATININE, SERUM 0.66 mg/dL (0.57-1.11); EST GLOMERULAR FILTRATION RATE > 60 ML/MIN (60-); GLUCOSE 92 mg/dL (74-118); SODIUM 138 mmol/L (136-145)
--- NOTE | 2019-07-10 07:09 | NUR ---
GAVE REPORT TO ONCOMING NURSE. PATIENT IN BED. PATIENT IN NO PAIN OR DISTRESS. CALL LIGHT WITHIN REACH.
[2019-07-10] MEDS: MIDODRINE HCL 5 MG TABLET PO SCH ×3 (08:00→16:00)
[2019-07-10] MEDS: ONDANSETRON HCL INJ 2MG/ML 2ML 2 MG/ML VIAL IV PRN ×2 (08:36→16:15)
[2019-07-10] MEDS: OSELTAMIVIR PHOSPHATE 75 MG CAP PO SCH ×2 (08:36→20:53)
[2019-07-10] MEDS: VANCOMYCIN 250MG/5ML ORAL SOLN PO SCH ×3 (12:30→23:32)
--- NOTE | 2019-07-10 15:41 | NUR ---
Pulmonary Medicine DATE 07/10/2019 SUBJECTIVE: weak less cough, but still coughing 2 L/min oxygen EATS some REVIEW OF SYSTEMS: no headaches, no rash. PHYSICAL EXAMINATION: VITAL SIGNS: Afebrile, vital signs noted and reviewed per the chart record. GENERAL: no acute distress, alert and calm. HEENT: Normocephalic and atraumatic. NECK: Supple. Throat midline. LUNGS: Bilateral air entry. The patient has clear lungs. CARDIOVASCULAR: S1 and S2. No murmurs, rubs, or gallops. ABDOMEN: Soft and nontender. EXTREMITIES: No clubbing. No cyanosis. There is no edema. INTEGUMENT: No rash. No purpura. LABORATORY DATA: cr 0.66, wbc 7.4 IMPRESSION AND PLAN: 1. Clinical acute influenza (Family contact (+)) 2. Mild upper respiratory infection. 3. Mild gastroenteritis. 4. History of mild gastroesophageal reflux disease. 5. History of mild allergies. continue Tamiflu no high pulmonary indication for antibiotics, as there is no pneumonia that was evident. repeat chest in 12 months' time in June 2020. continue supportive care for her condition. Thank you very much, Dr. Tidwell, for this consult. Please call for questions.
[2019-07-10] MEDS: CEFTRIAXONE SOD 1 GM/NS 50 ML 50 ML IV SCH (16:15)
--- NOTE | 2019-07-10 22:00 | NUR ---
NO RESP.DISTRESS.AAOX3.HAS COUGH.MEDICATION GIVEN.CALL LIGHT WITHIN REACH.HAS NO BOWEL MOVEMENT.
[2019-07-11] VITALS (7 sets, daily range): BP systolic 108–133; BP diastolic 53–80
[2019-07-11] MEDS: VANCOMYCIN 250MG/5ML ORAL SOLN PO SCH ×4 (05:45→23:48)
--- NOTE | 2019-07-11 07:10 | NUR ---
REPORT GIVEN TO ONCOMING RN .STABLE CONDITION.
--- NOTE | 2019-07-11 07:32 | Progress Note ---
DATE: 07/10/2019 Medicine Progress Note SUBJECTIVE: The patient is doing well today. DICTATION ENDS HERE MD JASMYN Rivero/LESLEYL /[id number]
[2019-07-11] MEDS: MIDODRINE HCL 5 MG TABLET PO SCH ×3 (08:00→16:00)
--- NOTE | 2019-07-11 12:15 | NUR ---
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
--- NOTE | 2019-07-11 12:36 | NUR ---
Patient has not had any episodes of diarrhea today, no fever, rounds by pulmonology.
--- NOTE | 2019-07-11 14:43 | NUR ---
Patient alert and no distress, tele in place, SR, tolerate d meals, no N/V, encouraged to get OOB and sit on chair or ambulate in room, will monitor.
--- NOTE | 2019-07-11 16:08 | NUR ---
Pulmonary Medicine DATE 07/11/2019 SUBJECTIVE: 2 L/min oxygen eating better more energy REVIEW OF SYSTEMS: no headaches, no rash. PHYSICAL EXAMINATION: VITAL SIGNS: Afebrile, vital signs noted and reviewed per the chart record. GENERAL: no acute distress, alert and calm. HEENT: Normocephalic and atraumatic. NECK: Supple. Throat midline. LUNGS: Bilateral air entry. The patient has clear lungs. CARDIOVASCULAR: S1 and S2. No murmurs, rubs, or gallops. ABDOMEN: Soft and nontender. EXTREMITIES: No clubbing. No cyanosis. There is no edema. INTEGUMENT: No rash. No purpura. LABORATORY DATA: no new updates IMPRESSION AND PLAN: 1. Clinical acute influenza (Family contact (+)) 2. Mild upper respiratory infection. 3. Mild gastroenteritis. 4. History of mild gastroesophageal reflux disease. 5. History of mild allergies. continue Tamiflu no high pulmonary indication for antibiotics, as there is no pneumonia that was evident repeat chest in 12 months' time in June 2020. continue supportive care for her condition. ready for discharge when cleared from non-pulmonary standpoint. she has improved greatly from pulmonary point of view. Thank you very much, Dr. Tidwell, for this consult. Please call for questions.
[2019-07-11] MEDS: CEFTRIAXONE SOD 1 GM/NS 50 ML 50 ML IV SCH (17:00)
--- NOTE | 2019-07-11 18:52 | NUR ---
Patient taken off O2, O2 eval done and 97% on RA on exertion, no SOB, no dyspnea, no distress, OOB and ambulating in the room,
--- NOTE | 2019-07-11 19:28 | NUR ---
received report from day nurse. patient is resting comfortably in the bed. bed is in the lowest position and call light is within reach. patient denies pain or discomfort. Patient is on oxygen via the nasal cannula at 2L. patient's telemetry box is attached. Will continue to monitor patient.
[2019-07-12] VITALS (8 sets, daily range): BP systolic 111–140; BP diastolic 56–74
[2019-07-12] MEDS: VANCOMYCIN 250MG/5ML ORAL SOLN PO SCH ×4 (06:15→23:46)
--- NOTE | 2019-07-12 06:16 | NUR ---
patient is resting comfortably in bed. bed is in lowest position and call light is within reach. will continue to monitor patient.
[2019-07-12] MEDS: MIDODRINE HCL 5 MG TABLET PO SCH ×3 (08:27→16:00)
--- NOTE | 2019-07-12 13:43 | NUR ---
DPA DONE VIA PHONE AND THROUGH RECORDS DUE TO ISOLATION.
--- NOTE | 2019-07-12 14:45 | NUR ---
Pulmonary Medicine DATE 07/12/2019 SUBJECTIVE: room air fio2 walked ate well REVIEW OF SYSTEMS: no headaches, no rash. PHYSICAL EXAMINATION: VITAL SIGNS: Afebrile, vital signs noted and reviewed per the chart record. GENERAL: no acute distress, alert and calm. HEENT: Normocephalic and atraumatic. NECK: Supple. Throat midline. LUNGS: Bilateral air entry. The patient has clear lungs. CARDIOVASCULAR: S1 and S2. No murmurs, rubs, or gallops. ABDOMEN: Soft and nontender. EXTREMITIES: No clubbing. No cyanosis. There is no edema. INTEGUMENT: No rash. No purpura. LABORATORY DATA: no new updates IMPRESSION AND PLAN: 1. Clinical acute influenza (Family contact (+)) 2. Mild upper respiratory infection. 3. Mild gastroenteritis. 4. History of mild gastroesophageal reflux disease. 5. History of mild allergies. Tamiflu per designated no high indication for pulmonary antibiotics, as there is no pneumonia that was evident repeat chest in 12 months' time in June 2020. continue supportive care for her condition. ready for discharge when cleared from non-pulmonary standpoint. she has improved greatly from pulmonary point of view. Thank you very much, Dr. Tidwell, for this consult. Please call for questions.
[2019-07-12] MEDS: CEFTRIAXONE SOD 1 GM/NS 50 ML 50 ML IV SCH (16:57)
--- NOTE | 2019-07-12 19:28 | NUR ---
Received report from day nurse. patient is resting comfortably in the bed. bed is in the lowest position and call light is within reach. denies pain or discomfort at this time. will continue to monitor patient.
[2019-07-13 00:09] VITALS: BP 109/72
[2019-07-13 04:00] VITALS: BP 127/72
[2019-07-13] MEDS: VANCOMYCIN 250MG/5ML ORAL SOLN PO SCH (06:14)
--- NOTE | 2019-07-13 06:55 | NUR ---
report given to day nurse. patient is resting in bed. bed is in lowest position and call light is within reach.
[2019-07-13] MEDS: MIDODRINE HCL 5 MG TABLET PO SCH (08:00)
[2019-07-13 08:23] VITALS: BP 131/74
--- NOTE | 2019-07-13 11:40 | Discharge Summary ---
PRIMARY CARE PHYSICIAN: Rodo Torres MD CONSULTANTS: 1. Dr. Sera Mar. 2. Dr. Good Azul. FINAL DIAGNOSES: 1. Upper respiratory infection, resolved. 2. Fever, resolved. 3. Cough and gastroenteritis, resolved. SUMMARY: The patient is a 74-year-old female, came in with upper respiratory symptoms. The patient with cough, myalgia, and fever. The patient was ruled out for COVID-19, serology test negative. The patient is otherwise stable. She is almost back to baseline. She has been afebrile over 24 to 48 hours. She has a normal blood pressure. The patient is able to ambulate, eating and drinking normally. No further workup at this time. The patient will go home today. She may off some of her home medications until she is completely at baseline. The patient to follow up with her family physician in approximately 1-2 weeks. The patient was discharged home with Tessalon Perles 100 mg every 6 hours p.r.n. for cough and Zofran ODT p.r.n. for nausea and vomiting. The patient is otherwise stable. Gastroenteritis completely resolved. The patient has been cleared by Dr. Mar for discharge home and I fully agree. CT of the chest, abdomen, and pelvis without any acute findings. MD RAY Beard/LESLEYL /[id number]
== END 2019-07-13 12:30 | disposition home or self-care (01) | DRG 195 ==
LOC: ER 10:25 → ERHOLD 18:14 → MED/SURG3 23:05 → IMCU 07-09 16:22
PROVIDERS: ADMIT Internal Medicine; ATTEND Internal Medicine
DX: J09.X2 Influenza due to identified novel influenza A virus with other respiratory manifestations (principal); J06.9 Acute upper respiratory infection, unspecified; K21.9 Gastro-esophageal reflux disease without esophagitis; Z03.818 Encounter for observation for suspected exposure to other biological agents ruled out; R91.8 Other nonspecific abnormal finding of lung field; K52.9 Noninfective gastroenteritis and colitis, unspecified; R53.81 Other malaise; D64.9 Anemia, unspecified
CPT/HCPCS: 36415; 71045; 71260; 74177; 80048; 80053; 81001; 82550; 82553; 83518; 83605; 83690; 84484; 85025; 87040; 87070; 87177; 87328; 87400; 87493; 87635; 94640; 96361; 99284; J0692; J0696; J1650; J2405; J7030; Q9967

== ENCOUNTER 2021-05-28 10:18 | Emergency (ER) | payer OTHER ==
[~2021-05-28] VITALS: Ht 149.9 cm; Wt 68.0 kg
[~2021-05-28 10:18] MED LIST changes: +ALENDRONATE SOD10 MG; +LEFLUNOMIDE20 MG; +PROCTOZONE-HC30 G1
== END 2021-05-28 12:59 | disposition home or self-care (01) ==
LOC: ER 11:00
DX: S93.401A Sprain of unspecified ligament of right ankle, initial encounter (principal); R20.0 Anesthesia of skin; X50.1XXA Overexertion from prolonged static or awkward postures, initial encounter; Y93.01 Activity, walking, marching and hiking; Y92.89 Other specified places as the place of occurrence of the external cause; I10 Essential (primary) hypertension; K21.9 Gastro-esophageal reflux disease without esophagitis
CPT/HCPCS: 99283

== ENCOUNTER 2024-06-03 10:27 | Emergency (ER) | payer MEDICARE ==
[~2024-06-03] VITALS: Ht 149.9 cm; Wt 59.0 kg
[~2024-06-03 10:27] MED LIST changes: +ANAPROX DS550 MG PO; +GABAPENTIN300 MG PO; +MEDROL4 M2 PO; +METHOCARBAMOL750 MG PO
[2024-06-03 11:10] VITALS: TEMP 98.3
[2024-06-03] MEDS: TETANUS/DIPHTHERIA TOX ADULT 0.5 ML SYR IM ONE (11:39)
[2024-06-03] MEDS: ACETAMINOPHEN 325 MG TAB PO ONE (11:40)
[2024-06-03 14:00] VITALS: PULSE 84; RESP 16; O2SAT 99
== END 2024-06-03 14:05 | disposition home or self-care (01) ==
LOC: ER 10:59
DX: S01.01XA Laceration without foreign body of scalp, initial encounter (principal); M54.50 Low back pain, unspecified; W10.8XXA Fall (on) (from) other stairs and steps, initial encounter; Y93.01 Activity, walking, marching and hiking; Y92.89 Other specified places as the place of occurrence of the external cause; I10 Essential (primary) hypertension; K21.9 Gastro-esophageal reflux disease without esophagitis
CPT/HCPCS: 70450; 72125; 72128; 72131; 90471; 90714; 99283

== ENCOUNTER 2024-06-10 08:55 | Emergency (ER) | payer MEDICARE ==
[~2024-06-10] VITALS: Ht 147.3 cm; Wt 63.0 kg
[2024-06-10 09:11] VITALS: TEMP 98.1
[2024-06-10 09:37] VITALS: PULSE 59; RESP 16; O2SAT 98
== END 2024-06-10 10:13 | disposition home or self-care (01) ==
LOC: ER 09:14
DX: Z48.02 Encounter for removal of sutures (principal)
CPT/HCPCS: 99282